=== PATIENT | female | born 1965 | race Asian ===

== ENCOUNTER 2017-02-04 14:54 | Outpatient (CLI) | payer MEDICAID | END 2017-02-04 14:55 | disposition home or self-care (01) | DX: Z12.31 Encounter for screening mammogram for malignant neoplasm of breast (principal) ==

== ENCOUNTER → 2017-04-19 | Outpatient (CLI) | payer MEDICAID ==
[2017-04-19 18:30] LABS: HEMOGLOBIN A1C 0.65 g/dL
[2017-04-19 18:37] LABS: ALBUMIN/GLOBULIN RATIO 1.3 (1.0-2.2); BILIRUBIN,TOTAL 0.5 mg/dL (0.2-1.0); BUN - BLOOD UREA NITROGEN 19 mg/dL (6-20); CALCIUM 9.3 mg/dL (8.5-10.3); CARBON DIOXIDE - CO2 25 mmol/L (21-32); CHLORIDE 104 mmol/L (101-111); CHOL/HDL RATIO 3.5 (<4.4); CHOLESTEROL 211 mg/dL; CREATININE 0.7 mg/dL (0.4-1.0); GFR - MDRD 88 (>89); GLUCOSE 112 mg/dL (70-100); HDL CHOLESTEROL 61 mg/dL; POTASSIUM 3.8 mmol/L (3.5-5.0); SODIUM 138 mmol/L (135-145); TOTAL PROTEIN 7.5 g/dL (6.7-8.2); TRIGLYCERIDES 141 mg/dL; VLDL CHOLESTEROL 28 mg/dL
== END ==
LOC: LAB.S 08:00
PROVIDERS: ATTEND Family Medicine
DX: E78.5 Hyperlipidemia, unspecified (principal); I10 Essential (primary) hypertension; E11.9 Type 2 diabetes mellitus without complications
CPT/HCPCS: 36415; 80053; 80061; 82043; 83036

== ENCOUNTER 2017-09-06 16:25 | Outpatient (CLI) | payer MEDICAID ==
--- NOTE | 2017-09-07 10:33 | XRAY Report ---
THREE-VIEW LEFT KNEE: 09/06/2017 CLINICAL INDICATION: Contusion. FINDINGS: AP, lateral, sunrise views of the left knee demonstrate moderate patellofemoral osteoarthr itis. There is no evidence of acute fracture or dislocation. No effusion is present. IMPRESSION: MODERATE OSTEOARTHRITIS OF THE PATELLOFEMORAL JOINT. JOB #: [id number] EXT JOB #:[id number]
== END 2017-09-06 16:26 | disposition home or self-care (01) ==
LOC: DI.S 16:25
PROVIDERS: ATTEND Nurse Practitioner Family
DX: M17.11 Unilateral primary osteoarthritis, right knee (principal)

== ENCOUNTER 2018-01-04 14:57 | Outpatient (CLI) | payer MEDICAID | END 2018-01-04 14:58 | disposition home or self-care (01) | LOC: DI.S 14:57 | PROVIDERS: ATTEND Nurse Practitioner Family | DX: Z53.9 Procedure and treatment not carried out, unspecified reason (principal) ==

== ENCOUNTER 2018-01-04 15:35 | Emergency (ER) | payer MEDICAID ==
--- NOTE | 2018-01-04 15:46 | ED Physician Documentation ---
PD HPI ABD PAIN - Stated complaint Stated Complaint: LWR L ABD PAIN - History obtained from History obtained from: Patient - History of Present Illness Timing - onset: How many days ago (5) Timing - duration: Days (5) Timing - details: Gradual onset, Still present (hit its maximal pain over about a day or so and has persisted since then. Tender to the touch LLQ and laterally. No fever, no vomiting, some soft stool but no diarrhea.) Quality: Aching, Sharp, Pain Location: LLQ Radiation: No: Chest, Left flank Improved by: Laying still, Position. No: Eating Worsened by: Moving, Palpation. No: Eating Associated symptoms: No: Fever, Nausea, Vomiting, Constipation, Melena, Dysuria , Hematuria, Loss of appetite, Vaginal bleeding, Vaginal dc Similar symptoms before: Has not had sx before Recently seen: Clinic (seen last Wednesday (4 days ago) in Clinic and empirically Rx for diverticulitis based on pain location. Late in day so clinic not able to get tests/imaging at that time. Pain persisted through weekend despite Bactrim and Flagyl bid. Patient back to clinic today and referred to ER for further testing.) Review of Systems Constitutional: denies: Fever, Chills Nose: denies: Rhinorrhea / runny nose, Congestion Throat: denies: Sore throat Respiratory: denies: Cough GI: reports: Abdominal Pain. denies: Nausea, Vomiting, Constipation, Diarrhea : denies: Dysuria, Frequency, Discharge, Vaginal bleeding Skin: denies: Rash, Lesions Musculoskeletal: denies: Back pain Neurologic: denies: Generalized weakness, Focal weakness, Numbness, Near syncope PD PAST MEDICAL HISTORY - Past Medical History Cardiovascular: Hypertension Respiratory: None Neuro: None Endocrine/Autoimmune: Type 2 diabetes GI: None - Present Medications Home Medications: Ambulatory Orders Medication Instructions Recorded Confirmed Diltiazem HCl [Diltiazem ER] 180 mg PO 01/04/18 Losartan [Cozaar] 100 mg PO DAILY 01/04/18 01/04/18 - Allergies Allergies/Adverse Reactions: Allergies Allergy/AdvReac Type Severity Reaction Status Date / Time No Known Drug Allergies Allergy Verified 01/04/18 15:52 - Living Situation Living Situation: reports: With spouse/s.o. Living Arrangement: reports: At home - Social History Does the pt smoke?: No Does the pt drink ETOH?: No Does the pt have substance abuse?: No - Family History Family history: reports: Non contributory PD ED PE NORMAL - Vitals Vital signs reviewed: Yes - General General: Alert and oriented X 3, No acute distress, Well developed/nourished - HEENT HEENT: Pharynx benign - Neck Neck: Supple, no meningeal sign, No adenopathy - Cardiac Cardiac: RRR, No murmur - Respiratory Respiratory: Clear bilaterally - Abdomen Abdomen: Normal bowel sounds, Soft, Non distended, Other (tender very focally left mid abdomen more laterally. No rash nor redness. No CVA tenderness. ) - Female Female : Deferred - Rectal Rectal: Deferred - Back Back: No CVA TTP - Derm Derm: Normal color, Warm and dry, No rash - Extremities Extremities: No deformity, Normal ROM s pain, No edema, No calf tenderness / cord - Neuro Neuro: Alert and oriented X 3, No motor deficit, Normal speech Results - Vitals Vitals: Vital Signs - 24 hr 01/04/18 15:43 Temperature 36.6 C Heart Rate 82 Respiratory 16 Rate Blood Pressure 131/68 H O2 Saturation 98 Oxygen O2 Source Room air - Labs Labs: Laboratory Tests 01/04/18 01/04/18 01/04/18 16:36 16:36 16:40 WBC 8.7 RBC 5.62 H Hgb 15.6 Hct 47.7 H MCV 84.9 MCH 27.8 MCHC 32.8 RDW 13.9 Plt Count 334 MPV 7.9 Neut # 5.7 Lymph # 2.2 [place] # 0.6 Eos # 0.1 Baso # 0.1 Absolute Nucleated RBC 0.00 Nucleated RBC % 0.0 Sodium 135 Potassium 3.9 Chloride 98 L Carbon Dioxide 24 Anion Gap 13.0 BUN 16 Creatinine 0.9 Estimated GFR (MDRD) 65 L Glucose 93 Calcium 9.5 Total Bilirubin 0.5 AST 45 H ALT 40 Alkaline Phosphatase 68 Total Protein 9.1 H Albumin 4.9 Globulin 4.2 Albumin/Globulin Ratio 1.2 Lipase 35 Urine Color YELLOW Urine Clarity CLEAR Urine pH 5.5 Ur Specific [place] >=1.030 H Urine Protein NEGATIVE Urine Glucose (UA) NEGATIVE Urine Ketones 40 H Urine Occult Blood NEGATIVE Urine Nitrite NEGATIVE Urine Bilirubin NEGATIVE Urine Urobilinogen 0.2 (NORMAL) Ur Leukocyte Esterase SMALL H Urine RBC None Seen Urine WBC 4-5 Ur Squamous Epith Cells MOD Squamous H Urine Bacteria Few Ur Microscopic Review INDICATED Urine Culture Comments NOT INDICATED - Rads (name of study) abd CT Radiology: Prelim report reviewed (Diverticula are noted but no signs of diverticulitis. There is a 2-3 cm rounded oval area of inflammation in the left lower quadrant consistent with epiploic appendagitis.), EMP read contemporaneously PD MEDICAL DECISION MAKING - ED course Complexity details: reviewed results, re-evaluated patient, considered differential, d/w patient, d/w family (her significant other) Departure - Departure Disposition: 01 Home, Self Care Clinical Impression: Epiploic appendagitis Abdominal pain Qualifiers: Abdominal location: left lower quadrant Qualified Code(s): R10.32 - Left lower quadrant pain Condition: Stable Record reviewed to determine appropriate education?: Yes Follow-Up: ALIYA SCHMITZ MD [Primary Care Provider] - Comments: You can stop antibiotics as there is no signs of infection. The epiploic appendage otitis creates and inflammation that typically lasts a couple of weeks. Anti-inflammatories can help it so I would suggest some Motrin ( ibuprofen) 2-3 tablets 2-3 times a day over the next 7-10 days. He can add Tylenol if needed for pains 2. Recheck if not better in the next week. He would be on usual to need surgical intervention for this but if the symptoms persisted more than 2 or 3 weeks then that could be a potential solution. Discharge Date/Time: 01/04/18 18:32
[2018-01-04 15:52] VITALS: BP 131/68
[2018-01-04 16:40] LABS: BASOPHILS # (AUTO) 0.1 10^3/uL (0.0-0.1); BASOPHILS % (AUTO) 0.9 %; EOSINOPHILS # (AUTO) 0.1 10^3/uL (0.0-0.7); EOSINOPHILS % (AUTO) 1.5 %; HGB - HEMOGLOBIN 15.6 g/dL (12.0-16.0); LYMPHOCYTES # (AUTO) 2.2 10^3/uL (1.5-3.5); LYMPHOCYTES % (AUTO) 25.1 %; MEAN CORPUSCULAR HEMOGLOBIN 27.8 pg (27.0-31.0); MEAN CORPUSCULAR HGB CONC 32.8 g/dL (32.0-36.0); MEAN CORPUSCULAR VOLUME 84.9 fL (81.0-99.0); MEAN PLATELET VOLUME 7.9 fL (7.9-10.8); MONOCYTES # (AUTO) 0.6 10^3/uL (0.0-1.0); MONOCYTES % (AUTO) 6.8 %; NEUTROPHILS # (AUTO) 5.7 10^3/uL (1.5-6.6); NEUTROPHILS % (AUTO) 65.7 %; PLT - PLATELET COUNT 334 10^3/uL (130-450); RED BLOOD COUNT 5.62 10^6/uL (4.20-5.40); RED CELL DISTRIBUTION WIDTH 13.9 % (12.0-15.0); WHITE BLOOD COUNT 8.7 x10^3/uL (4.8-10.8)
[2018-01-04 16:49] LABS: BILIRUBIN,URINE NEGATIVE (NEGATIVE); GLUCOSE, URINE (UA) NEGATIVE (NEGATIVE); KETONES,URINE (UA) 40 mg/dL (NEGATIVE); LEUKOCYTE ESTERASE, URINE SMALL (NEGATIVE); NITRITE,URINE NEGATIVE (NEGATIVE); OCCULT BLOOD,URINE NEGATIVE (NEGATIVE); PH,URINE 5.5 PH (5.0-7.5); PROTEIN,URINE NEGATIVE (NEGATIVE); UROBILINOGEN,URINE 0.2 (NORMAL) E.U./dL (NORMAL)
[2018-01-04 16:56] LABS: ALBUMIN 4.9 g/dL (3.2-5.5); ALBUMIN/GLOBULIN RATIO 1.2 (1.0-2.2); BILIRUBIN,TOTAL 0.5 mg/dL (0.2-1.0); CALCIUM 9.5 mg/dL (8.5-10.3); CREATININE 0.9 mg/dL (0.4-1.0); TOTAL PROTEIN 9.1 g/dL (6.7-8.2)
[2018-01-04 16:57] LABS: CLARITY,URINE CLEAR (CLEAR)
[2018-01-04 16:58] LABS: BACTERIA,URINE Few /HPF (None Seen); RBC,URINE None Seen /HPF (0-5); SQUAMOUS EPITHELIAL CELL,UR MOD Squamous (<= Few)
[2018-01-04] MEDS ORDERED: IOPAMIDOL-300 100 ML VIAL ONE (17:13)
[2018-01-04] MEDS ORDERED: IOPAMIDOL-300 100 ML VIAL IVP ONE (17:32)
--- NOTE | 2018-01-04 17:55 | CT Report ---
EXAM: CT ABDOMEN AND PELVIS EXAM DATE: 01/04/2018 05:32 PM. CLINICAL HISTORY: Left lower abdomen pain for 5 days. COMPARISONS: None. TECHNIQUE: Routine helical CT imaging was performed through the abdomen and pelvis. IV contrast: 100 ML ISOVUE 300. Enteric contrast: No. Reconstructions: Coronal and sagittal. In accordance with CT protocol optimization, one or more of the following dose reduction techniques w ere utilized for this exam: automated exposure control, adjustment of mA and/or KV based on patient s ize, or use of iterative reconstructive technique. FINDINGS: Lung Bases: Small hiatal hernia, otherwise unremarkable. Liver: Diffuse low-density. Gallbladder/Bile Ducts: Unremarkable. Spleen: Normal. Pancreas: Normal. Adrenal Glands: Normal. Kidneys: Normal. No masses or hydronephrosis. Peritoneal Cavity/Bowel: Mild widespread diverticulosis. Oval fat stranding lateral to the lower left colon without adjacent wall thickening or diverticular inflammation. No free fluid, free air or maria esther opathy. No masses. The appendix is well visualized and normal. Pelvic Organs: Fibroid uterus. The bladder is unremarkable. Vasculature: No aneurysms or other significant abnormality. Bones: Bilateral sacroiliitis noted. Minimal S-shaped scoliosis, with lower lumbar facet arthropathy. Other: None. IMPRESSION: 1. Epiploic appendagitis lateral to the lower left colon. 2. Mild widespread diverticulosis without signs of diverticulitis. 3. Small hiatal hernia. 4. Hepatic steatosis. [facility] Referring Provider Line: [phone] SITE ID: [id number]
--- NOTE | 2018-01-04 17:55 | CT Preliminary Report ---
Exam: CT ABDOMEN/PELVIS W/ IMPRESSION: 1. Epiploic appendagitis lateral to the lower left colon. 2. Mild widespread diverticulosis without signs of diverticulitis. 3. Small hiatal hernia. 4. Hepatic steatosis. [facility] SITE ID: [id number]
== END 2018-01-04 18:32 | disposition home or self-care (01) ==
LOC: ED 15:35
DX: K63.89 Other specified diseases of intestine (principal); R10.32 Left lower quadrant pain; I10 Essential (primary) hypertension; E11.9 Type 2 diabetes mellitus without complications
CPT/HCPCS: 36415; 74177; 80053; 81001; 83690; 85025; 99283; Q9967; 81003; 87086

== ENCOUNTER 2018-01-31 13:16 | Outpatient (CLI) | payer MEDICAID ==
[2018-01-31 18:49] LABS: HEMOGLOBIN A1C 0.74 g/dL; HEMOGLOBIN A1C % 6.1 % (4.6-6.2)
[2018-01-31 18:55] LABS: ALBUMIN 4.4 g/dL (3.2-5.5); ALBUMIN/GLOBULIN RATIO 1.3 (1.0-2.2); ALKALINE PHOSPHATASE 57 IU/L (42-121); ALT ALANINE AMINOTRANSFERASE 36 IU/L (10-60); AST ASPARTATE AMINOTRANSFERASE 25 IU/L (10-42); BILIRUBIN,TOTAL 0.6 mg/dL (0.2-1.0); BUN - BLOOD UREA NITROGEN 15 mg/dL (6-20); CALCIUM 9.2 mg/dL (8.5-10.3); CARBON DIOXIDE - CO2 26 mmol/L (21-32); CHLORIDE 101 mmol/L (101-111); CHOL/HDL RATIO 3.8 (<4.4); CHOLESTEROL 223 mg/dL; CREATININE 0.6 mg/dL (0.4-1.0); GFR - MDRD 104 (>89); GLUCOSE 96 mg/dL (70-100); HDL CHOLESTEROL 59 mg/dL; LDL CHOLESTEROL,CALCULATED 117 mg/dL; SODIUM 136 mmol/L (135-145); TOTAL PROTEIN 7.8 g/dL (6.7-8.2); VLDL CHOLESTEROL 47 mg/dL
== END 2018-01-31 13:17 ==
LOC: LAB.S 13:16
PROVIDERS: ATTEND Family Medicine
DX: E78.5 Hyperlipidemia, unspecified (principal); I10 Essential (primary) hypertension; E11.9 Type 2 diabetes mellitus without complications
CPT/HCPCS: 36415; 80053; 80061; 82043; 83036; 83721; 84443

== ENCOUNTER 2018-02-14 11:34 | Outpatient (CLI) | payer MEDICAID ==
--- NOTE | 2018-02-15 15:06 | Mammography Report ---
DIGITAL SCREENING MAMMOGRAM: 02/14/2018 CLINICAL INDICATION: A 52-year-old with history of late childbearing for screening. COMPARISON: 01/2017, 01/2016, 11/2014, 11/2013, 12/2012, 02/2011, 01/2010. TECHNIQUE: Routine CC and MLO projections were obtained of the breasts. FINDINGS: Parenchymal tissue within the breasts is predominantly fatty replaced. There are no dominant masses, suspicious microcalcifications, or secondary signs of malignancy. In comparison to the previous studies, there are no significant changes. IMPRESSION: NO MAMMOGRAPHIC EVIDENCE OF MALIGNANCY. NO SIGNIFICANT INTERVAL CHANGES. RECOMMENDATION: Screening mammography is recommended annually. BIRADS CATEGORY 1 - NEGATIVE. STANDARD QUALIFYING STATEMENTS: 1. This examination was reviewed with the aid of Computed-Aided Detection (CAD). 2. A negative or benign imaging report should not delay biopsy if clinically suspicious findings are present. Consider surgical consultation if warranted. More than 5% of cancers are not identified by imaging. 3. Dense breasts may obscure an underlying neoplasm. TD: 02/15/2018 15:05
== END 2018-02-14 11:35 | disposition home or self-care (01) ==
LOC: DI.S 11:34
PROVIDERS: ATTEND Family Medicine
DX: Z12.31 Encounter for screening mammogram for malignant neoplasm of breast (principal)
CPT/HCPCS: 77067

== ENCOUNTER 2018-08-08 11:09 | Outpatient (CLI) | payer MEDICAID ==
[2018-08-08 19:08] LABS: ALBUMIN 4.4 g/dL (3.2-5.5); ALBUMIN/GLOBULIN RATIO 1.3 (1.0-2.2); ALKALINE PHOSPHATASE 64 IU/L (42-121); ALT ALANINE AMINOTRANSFERASE 22 IU/L (10-60); AST ASPARTATE AMINOTRANSFERASE 20 IU/L (10-42); BILIRUBIN,TOTAL 0.7 mg/dL (0.2-1.0); BUN - BLOOD UREA NITROGEN 21 mg/dL (6-20); CALCIUM 9.2 mg/dL (8.5-10.3); CARBON DIOXIDE - CO2 24 mmol/L (21-32); CHLORIDE 103 mmol/L (101-111); CHOL/HDL RATIO 3.6 (<4.4); CHOLESTEROL 241 mg/dL; CREATININE 0.7 mg/dL (0.4-1.0); GFR - MDRD 87 (>89); GLUCOSE 115 mg/dL (70-100); HDL CHOLESTEROL 67 mg/dL; LDL CHOLESTEROL,CALCULATED 142 mg/dL; LDL/HDL RATIO 2.1 (<4.4); SODIUM 137 mmol/L (135-145); TOTAL PROTEIN 7.9 g/dL (6.7-8.2); VLDL CHOLESTEROL 32 mg/dL
[2018-08-08 19:23] LABS: HEMOGLOBIN A1C 0.7 g/dL; HEMOGLOBIN A1C % 6.2 % (4.6-6.2)
== END 2018-08-08 11:10 | disposition home or self-care (01) ==
LOC: LAB.S 11:09
PROVIDERS: ATTEND Nurse Practitioner Family
DX: R10.9 Unspecified abdominal pain (principal); E78.5 Hyperlipidemia, unspecified; I10 Essential (primary) hypertension; E11.9 Type 2 diabetes mellitus without complications
CPT/HCPCS: 80053; 80061; 82043; 83036; 83721

== ENCOUNTER 2019-03-14 08:00 | Outpatient (CLI) | payer MEDICAID ==
[2019-03-14 18:18] LABS: ALBUMIN 4.3 g/dL (3.2-5.5); ALBUMIN/GLOBULIN RATIO 1.2 (1.0-2.2); ALKALINE PHOSPHATASE 65 IU/L (42-121); ALT ALANINE AMINOTRANSFERASE 34 IU/L (10-60); AST ASPARTATE AMINOTRANSFERASE 28 IU/L (10-42); BILIRUBIN,TOTAL 0.4 mg/dL (0.2-1.0); BUN - BLOOD UREA NITROGEN 15 mg/dL (6-20); CALCIUM 9.4 mg/dL (8.5-10.3); CARBON DIOXIDE - CO2 25 mmol/L (21-32); CHLORIDE 103 mmol/L (101-111); CHOL/HDL RATIO 3.4 (<4.4); CHOLESTEROL 231 mg/dL; CREATININE 0.7 mg/dL (0.4-1.0); GFR - MDRD 87 (>89); GLUCOSE 119 mg/dL (70-100); HDL CHOLESTEROL 67 mg/dL; LDL CHOLESTEROL,CALCULATED 128 mg/dL; LDL/HDL RATIO 1.9 (<4.4); SODIUM 137 mmol/L (135-145); VLDL CHOLESTEROL 36 mg/dL
[2019-03-14 18:37] LABS: HB2 TOTAL 16.1 g/dL; HEMOGLOBIN A1C 0.8 g/dL; HEMOGLOBIN A1C % 6.7 % (4.6-6.2)
== END 2019-03-14 23:59 | disposition home or self-care (01) ==
LOC: LAB.F 08:00
PROVIDERS: ATTEND Physician Assistant Medical
DX: E78.5 Hyperlipidemia, unspecified (principal); E11.9 Type 2 diabetes mellitus without complications
CPT/HCPCS: 36415; 80053; 80061; 82043; 83036; 83721; 84443

== ENCOUNTER 2019-07-06 17:29 | Outpatient (CLI) | payer MEDICAID ==
--- NOTE | 2019-07-07 11:06 | Ultrasound Report ---
Reason: POSTMENOPAUSAL BLEEDING Procedure Date: 07/06/2019 Accession Number: [id number] / [id number] Procedure: US - Pelvic w/Transvaginal CPT Code: FULL RESULT: EXAM: PELVIC ULTRASOUND EXAM DATE: 07/06/2019 06:50 PM. CLINICAL HISTORY: POSTMENOPAUSAL BLEEDING. COMPARISON: PELV 02/25/2007 12:07 PM ABDOMEN/PELVIS W/ 01/04/2018 5:16 PM. TECHNIQUE: Realtime transabdominal pelvic scan performed to identify the uterus and adnexa and as an overview of other pelvic structures, followed by transvaginal scan to provide greater detail of the uterus and adnexa, with static image documentation. FINDINGS: Technically difficult examination. Uterus: 11.5 x 4.4 x 6.1 cm, volume 161 cc. Anteverted position. Mildly enlarged size and heterogeneous echotexture.. Masses: At least 3 discrete fibroids are seen. The largest is left subserosal mid to lower uterine segment 3 x 3.4 x 2.3 cm. Next largest is right fundal subserosal 2.5 x 2.4 x 2.9 cm. Endometrium: The endometrial echo is not well seen. mm. Normal. Cervix: Unremarkable. Right Ovary: 1.9 x 0.8 x 1.6 cm, volume 1.3 cc. Normal echotexture and blood flow. Left Ovary: 2.5 x 1.8 x 2.3 cm, volume 5.2 cc. Normal echotexture and blood flow. Possible 1.5 cm cyst Free Fluid: None. Other: None. IMPRESSION: Technically limited study. Mildly enlarged uterus with myomatous changes. Endometrial echo not well seen. No adnexal masses. [facility]
== END 2019-07-06 17:30 | disposition home or self-care (01) ==
LOC: DI 17:29
PROVIDERS: ATTEND Physician Assistant Medical
DX: D25.2 Subserosal leiomyoma of uterus (principal)
CPT/HCPCS: 76830; 76856

== ENCOUNTER 2019-09-18 11:09 | Outpatient (CLI) | payer MEDICAID ==
--- NOTE | 2019-09-18 14:42 | Mammography Report ---
Reason: ROUTINE MAMMO Procedure Date: 09/18/2019 Accession Number: [id number] / [id number] Procedure: MGS - Screening Mammo Dig Bilat CPT Code: Final Report FULL RESULT: EXAM: Screening Mammo Dig Bilat DATE: 09/18/2019 11:50 AM CLINICAL HISTORY: The patient is an asymptomatic 52-year-old female. Late childbearing age. Second degree family history of breast cancer. TECHNIQUE: (B) - Bilateral CC and MLO views were obtained. COMPARISON: 02/11/2016, 12/05/2014 12/12/2013 PARENCHYMAL PATTERN: (A) - The breasts demonstrate scattered fibroglandular densities bilaterally. FINDINGS: There are no suspicious masses, calcifications, or areas of distortion. IMPRESSION: Negative examination. BI-RADS category 1. RECOMMENDATION: (ANNUAL) - Recommend routine annual screening mammography. BI-RADS CATEGORY: (1) - Negative. STANDARD QUALIFYING STATEMENTS: 1. This examination was reviewed with the aid of Computer-Aided Detection (CAD). 2. A negative or benign imaging report should not preclude biopsy if clinically suspicious findings are present. 3. Dense breasts may obscure an underlying neoplasm.
[2019-09-18 18:18] LABS: HEMOGLOBIN A1C 0.7 g/dL; HEMOGLOBIN A1C % 6.4 % (4.6-6.2)
[2019-09-18 18:37] LABS: ALBUMIN 4.4 g/dL (3.2-5.5); ALBUMIN/GLOBULIN RATIO 1.3 (1.0-2.2); ALKALINE PHOSPHATASE 55 IU/L (42-121); ALT ALANINE AMINOTRANSFERASE 34 IU/L (10-60); AST ASPARTATE AMINOTRANSFERASE 23 IU/L (10-42); BILIRUBIN,TOTAL 0.5 mg/dL (0.2-1.0); BUN - BLOOD UREA NITROGEN 16 mg/dL (6-20); CALCIUM 9.4 mg/dL (8.5-10.3); CARBON DIOXIDE - CO2 27 mmol/L (21-32); CHLORIDE 103 mmol/L (101-111); CHOL/HDL RATIO 3.7 (<4.4); CHOLESTEROL 213 mg/dL; CREATININE 0.6 mg/dL (0.4-1.0); GFR - MDRD 103 (>89); GLUCOSE 114 mg/dL (70-100); HDL CHOLESTEROL 58 mg/dL; LDL CHOLESTEROL,CALCULATED 123 mg/dL; LDL/HDL RATIO 2.1 (<4.4); SODIUM 138 mmol/L (135-145); TOTAL PROTEIN 7.9 g/dL (6.7-8.2); VLDL CHOLESTEROL 32 mg/dL
== END 2019-09-18 11:10 | disposition home or self-care (01) ==
LOC: DI.S 11:09
DX: Z12.31 Encounter for screening mammogram for malignant neoplasm of breast (principal); Z80.3 Family history of malignant neoplasm of breast; I10 Essential (primary) hypertension; E78.5 Hyperlipidemia, unspecified; E11.9 Type 2 diabetes mellitus without complications
CPT/HCPCS: 36415; 77067; 80053; 80061; 83036; 83721

== ENCOUNTER 2020-07-22 10:20 | Outpatient (CLI) | payer MEDICAID ==
[2020-07-22 16:33] LABS: BASOPHILS % (AUTO) 0.5 %; EOSINOPHILS # (AUTO) 0.1 10^3/uL (0.0-0.7); EOSINOPHILS % (AUTO) 1.7 %; HGB - HEMOGLOBIN 14.7 g/dL (12.0-16.0); LYMPHOCYTES # (AUTO) 1.8 10^3/uL (1.5-3.5); LYMPHOCYTES % (AUTO) 29.9 %; MEAN CORPUSCULAR HEMOGLOBIN 28.5 pg (27.0-31.0); MEAN CORPUSCULAR HGB CONC 32.8 g/dL (32.0-36.0); MEAN CORPUSCULAR VOLUME 86.8 fL (81.0-99.0); MEAN PLATELET VOLUME 10.2 fL (7.9-10.8); MONOCYTES # (AUTO) 0.4 10^3/uL (0.0-1.0); MONOCYTES % (AUTO) 5.9 %; NEUTROPHILS # (AUTO) 3.6 10^3/uL (1.5-6.6); NEUTROPHILS % (AUTO) 61.3 %; PLT - PLATELET COUNT 282 10^3/uL (130-450); RED BLOOD COUNT 5.16 10^6/uL (4.20-5.40); RED CELL DISTRIBUTION WIDTH 13.5 % (12.0-15.0); WHITE BLOOD COUNT 5.9 x10^3/uL (4.8-10.8)
[2020-07-22 16:35] LABS: CREATININE,URINE 271.8 mg/dL; MICROALBUM/CREATININE RATIO,UR 5.5 ug/mg (<30.0); MICROALBUMIN,URINE 1.5 mg/dL (0-300.0)
[2020-07-22 17:27] LABS: ALBUMIN 4.4 g/dL (3.2-5.5); ALBUMIN/GLOBULIN RATIO 1.3 (1.0-2.2); ALKALINE PHOSPHATASE 58 IU/L (42-121); ALT ALANINE AMINOTRANSFERASE 37 IU/L (10-60); AST ASPARTATE AMINOTRANSFERASE 27 IU/L (10-42); BILIRUBIN,TOTAL 0.9 mg/dL (0.2-1.0); BUN - BLOOD UREA NITROGEN 17 mg/dL (6-20); CALCIUM 9.2 mg/dL (8.5-10.3); CARBON DIOXIDE - CO2 25 mmol/L (21-32); CHLORIDE 105 mmol/L (101-111); CHOL/HDL RATIO 4.4 (<4.4); CHOLESTEROL 237 mg/dL; CREATININE 0.8 mg/dL (0.4-1.0); GLUCOSE 127 mg/dL (70-100); HDL CHOLESTEROL 54 mg/dL; LDL CHOLESTEROL,CALCULATED 152 mg/dL; LDL/HDL RATIO 2.8 (<4.4); SODIUM 138 mmol/L (135-145); TOTAL PROTEIN 7.7 g/dL (6.7-8.2); VLDL CHOLESTEROL 31 mg/dL
[2020-07-22 22:26] LABS: HEMOGLOBIN A1c% 6.5 % (4.27-6.07)
[2020-07-23 13:43] LABS: HEPATITIS C ANTIBODY NON-REACTIVE (NON-REACTIVE)
== END 2020-07-22 10:21 | disposition home or self-care (01) ==
LOC: LAB.S 10:20
PROVIDERS: ATTEND Registered Nurse
DX: Z00.00 Encounter for general adult medical examination without abnormal findings (principal); Z12.11 Encounter for screening for malignant neoplasm of colon; I10 Essential (primary) hypertension; E11.9 Type 2 diabetes mellitus without complications; Z82.49 Family history of ischemic heart disease and other diseases of the circulatory system
CPT/HCPCS: 36415; 80053; 80061; 82043; 82274; 82570; 83036; 83721; 84443; 85025; 86803

== ENCOUNTER 2020-08-08 08:00 | Outpatient (CLI) | payer MEDICAID | END 2020-08-08 08:01 | disposition home or self-care (01) | LOC: LAB.R 08:00 | PROVIDERS: ATTEND Registered Nurse | DX: Z12.11 Encounter for screening for malignant neoplasm of colon (principal) | CPT/HCPCS: 82274 ==

== ENCOUNTER 2020-12-03 11:10 | Outpatient (CLI) | payer MEDICAID ==
[2020-12-03 15:21] LABS: CALCIUM 9.1 mg/dL (8.5-10.3); CREATININE 0.6 mg/dL (0.4-1.0)
[2020-12-03 20:06] LABS: HEMOGLOBIN A1c% 6.6 % (4.27-6.07)
[2020-12-04 12:18] LABS: HEPATITIS C ANTIBODY NON-REACTIVE (NON-REACTIVE)
== END 2020-12-03 11:11 | disposition home or self-care (01) ==
LOC: LAB.S 11:10
PROVIDERS: ATTEND Registered Nurse
DX: Z01.84 Encounter for antibody response examination (principal); E11.9 Type 2 diabetes mellitus without complications
CPT/HCPCS: 36415; 80048; 83036; 86803

== ENCOUNTER 2021-06-16 13:12 | Outpatient (CLI) | payer MEDICAID ==
--- NOTE | 2021-06-17 15:24 | Mammography Report ---
BILATERAL DIGITAL SCREENING MAMMOGRAM 3D/2D: 06/16/2021 CLINICAL: Family history of breast cancer. Comparison is made to exams dated: 09/18/2019 mammogram, 02/14/2018 mammogram, and 02/04/2017 mammogram - [facility]. There are scattered fibroglandular elements in both breasts. No significant masses, calcifications, or other findings are seen in either breast. There has been no significant interval change. IMPRESSION: NEGATIVE There is no mammographic evidence of malignancy. A 1 year screening mammogram is recommended. This exam was interpreted at Station ID: [id number]. NOTE: For mammograms, a report in lay terms will be sent to the patient. Approximately 15% of breast malignancies will not be visualized mammographically. In the management of a palpable breast mass, a negative mammogram must not discourage biopsy of a clinically suspicious lesion. Electronically Signed By: Lauri Belcher M.D. aty/penrad:06/16/2021 16:58:15 ACR BI-RADS Category 1: Negative 3341F PARENCHYMAL PATTERN: (A) - The breast(s) demonstrate(s) scattered fibroglandular densities. BI-RADS CATEGORY: (1) - 1 RECOMMENDATION: (ANNUAL) - Recommend routine annual screening mammography. [id number] 1 year screening LATERALITY: (B)
== END 2021-06-16 13:13 | disposition home or self-care (01) ==
LOC: DI.S 13:12
DX: Z12.31 Encounter for screening mammogram for malignant neoplasm of breast (principal); Z80.3 Family history of malignant neoplasm of breast

== ENCOUNTER 2021-09-16 09:20 | Outpatient (CLI) | payer MEDICAID ==
[2021-09-16 16:23] LABS: CREATININE 0.7 mg/dL (0.4-1.0); POTASSIUM 3.8 mmol/L (3.5-5.0)
[2021-09-16 21:16] LABS: ESTIMATED AVERAGE GLUCOSE 154 mg/dL (70-100)
== END 2021-09-16 09:21 | disposition home or self-care (01) ==
LOC: LAB.S 09:20
PROVIDERS: ATTEND Registered Nurse
DX: I10 Essential (primary) hypertension (principal); E11.9 Type 2 diabetes mellitus without complications
CPT/HCPCS: 36415; 80048; 83036

== ENCOUNTER 2021-12-05 10:34 | Outpatient (CLI) | payer MEDICAID ==
[2021-12-05 15:34] LABS: BASOPHILS % (AUTO) 0.6 %; EOSINOPHILS # (AUTO) 0.2 10^3/uL (0.0-0.7); EOSINOPHILS % (AUTO) 2.4 %; HGB - HEMOGLOBIN 14.8 g/dL (12.0-16.0); LYMPHOCYTES # (AUTO) 2.2 10^3/uL (1.5-3.5); LYMPHOCYTES % (AUTO) 34.4 %; MEAN CORPUSCULAR HEMOGLOBIN 27.9 pg (27.0-31.0); MEAN CORPUSCULAR HGB CONC 32.9 g/dL (32.0-36.0); MEAN CORPUSCULAR VOLUME 84.9 fL (81.0-99.0); MEAN PLATELET VOLUME 9.8 fL (7.9-10.8); MONOCYTES # (AUTO) 0.4 10^3/uL (0.0-1.0); MONOCYTES % (AUTO) 6.3 %; NEUTROPHILS # (AUTO) 3.6 10^3/uL (1.5-6.6); NEUTROPHILS % (AUTO) 55.8 %; PLT - PLATELET COUNT 309 10^3/uL (130-450); RED CELL DISTRIBUTION WIDTH 13.6 % (12.0-15.0); WHITE BLOOD COUNT 6.4 x10^3/uL (4.8-10.8)
[2021-12-05 16:02] LABS: ALBUMIN 4.1 g/dL (3.2-5.5); ALBUMIN/GLOBULIN RATIO 1.1 (1.0-2.2); ALKALINE PHOSPHATASE 53 IU/L (42-121); ALT ALANINE AMINOTRANSFERASE 35 IU/L (10-60); AST ASPARTATE AMINOTRANSFERASE 24 IU/L (10-42); BILIRUBIN,TOTAL 0.5 mg/dL (0.2-1.0); BUN - BLOOD UREA NITROGEN 14 mg/dL (6-20); CALCIUM 9.4 mg/dL (8.5-10.3); CARBON DIOXIDE - CO2 25 mmol/L (21-32); CHLORIDE 102 mmol/L (101-111); CHOLESTEROL 257 mg/dL; CREATININE 0.6 mg/dL (0.4-1.0); GFR - MDRD 103 (>89); GLUCOSE 143 mg/dL (70-100); HDL CHOLESTEROL 65 mg/dL; LDL CHOLESTEROL,CALCULATED 161 mg/dL; LDL/HDL RATIO 2.5 (<4.4); POTASSIUM 3.8 mmol/L (3.5-5.0); SODIUM 136 mmol/L (135-145); TOTAL PROTEIN 7.8 g/dL (6.7-8.2); TRIGLYCERIDES 153 mg/dL; VLDL CHOLESTEROL 31 mg/dL
[2021-12-05 16:14] LABS: CREATININE,URINE 197.6 mg/dL; MICROALBUM/CREATININE RATIO,UR 4.6 ug/mg (<30.0); MICROALBUMIN,URINE 0.9 mg/dL (0-300.0)
[2021-12-05 16:27] LABS: THYROID STIMULATING HORMONE 1.62 uIU/mL (0.34-5.60)
[2021-12-05 21:14] LABS: ESTIMATED AVERAGE GLUCOSE 154 mg/dL (70-100)
== END 2021-12-05 10:35 | disposition home or self-care (01) ==
LOC: LAB.S 10:34
PROVIDERS: ATTEND Registered Nurse
DX: E78.5 Hyperlipidemia, unspecified (principal); I10 Essential (primary) hypertension; E11.9 Type 2 diabetes mellitus without complications
CPT/HCPCS: 36415; 80050; 80061; 82043; 82570; 83036; 83721; 84153

== ENCOUNTER 2022-07-13 18:46 | Outpatient (CLI) | payer MEDICAID ==
--- NOTE | 2022-07-14 23:58 | Ultrasound Report ---
PROCEDURE: Pelvic w/Transvaginal INDICATIONS: UTERINE FIBROIDS TECHNIQUE: Real-time scanning was performed of the pelvic organs, with image documentation. Additional endovagi nal scanning was necessary due to incomplete visualization of the adnexal and endometrial structures by transabdominal scanning. COMPARISON: None. FINDINGS: Uterus: Uterus is anteverted and normal in size at 2.7 x 4.8 x 5.5 cm. The myometrium is heterogene ous. Multiple uterine fibroids are noted as described below: 1. 2.7 x 2.4 x 2.7 cm subserosal fibroid seen in uterine fundus previously measures 2.5 x 2.4 x 2.9 c m. 2. 2.7 x 2.8 x 3 cm submucosal fibroid is seen in mid myometrium previously measures 2.2 x 1.9 x 1.7 cm 3. 2.4 x 1.6 x 2 cm subserosal fibroid is seen in left lower uterine segment previously measures 3.4 x 3 x 2.3 cm in size. The endometrium measures 7 mm in combined thickness. No endometrial mass or fluid. Ovaries: The right ovary measures 1.5 x 1.5 x 1.6 cm, with a calculated ovarian volume of 1.8 cc. T he left ovary measures 2.7 x 1.6 x 2.3 cm, with a calculated ovarian volume of 5 cc. The ovaries hav e a normal sonographic appearance. Mildly complex cyst versus dominant follicle is seen in left ovary measures 1.9 x 1.1 x 1.5 cm in size. No internal vascularity is seen. Less than 12 follicles can be seen in each ovary. No adnexal masses are seen. Other: No pathologic free abdominal or pelvic fluid. IMPRESSION: 1. 3 uterine fibroids as described above. No endometrial mass or fluid. 2. Dominant follicle versus mildly complex cyst in left ovary. Sonographic follow-up in 4-6 weeks is recommended. Reviewed by: Jaylon Montano MD on 07/14/2022 11:57 PM PDT Approved by: Jaylon Montano MD on 07/14/2022 11:57 PM PDT Station ID: [id number]
== END 2022-07-13 18:47 | disposition home or self-care (01) ==
LOC: DI 18:46
PROVIDERS: ATTEND Registered Nurse
DX: D25.0 Submucous leiomyoma of uterus (principal); D25.2 Subserosal leiomyoma of uterus

== ENCOUNTER 2022-08-19 18:53 | Outpatient (CLI) | payer MEDICAID ==
--- NOTE | 2022-08-20 11:45 | Ultrasound Report ---
PROCEDURE: Pelvic w/Transvaginal INDICATIONS: OVARIAN CYST TECHNIQUE: Real-time scanning was performed of the pelvic organs, with image documentation. Additional endovagi nal scanning was necessary due to incomplete visualization of the adnexal and endometrial structures by transabdominal scanning. COMPARISON: Pelvic ultrasound 07/14/2022 FINDINGS: Uterus: Uterus is anteverted and normal in size at 5.1 x 4.9 x 6.0 cm. The myometrium is heterogene ous. The endometrium measures 6.6 mm in combined thickness. There is a fundal subserosal focus of h eterogeneous echogenicity in the uterus measuring 2.9 x 2.6 x 2.7 cm compared to 2.7 x 2.4 x 2.7 cm. A subdural focus in the mid uterus is identified measuring 3.1 x 2.9 x 3.2 cm compared to 2.7 x 2.68 x 3.0 cm. A lower uterine segment somewhat loculated focus is identified measuring 2.1 x 1.6 x 2.1 cm compared to 2.4 x 1.6 x 2.0 cm. Ovaries: The right ovary measures 1.5 x 1.0 x 1.5 cm, with a calculated ovarian volume of 1.2 cc. T he left ovary measures 2.6 x 1.6 x 2.5 cm, with a calculated ovarian volume of 5.5 cc. The ovaries h ave a normal sonographic appearance. Less than 12 follicles can be seen in each ovary. No adnexal m asses are seen. Other: No pathologic free abdominal or pelvic fluid. IMPRESSION: Multiple foci of heterogeneous echogenicity within the uterus appearing relatively stable compared to prior exam. No ovarian cysts are identified. Reviewed by: Cecilia Laurent MD on 08/20/2022 11:44 AM PDT Approved by: Cecilia Laurent MD on 08/20/2022 11:44 AM PDT Station ID: [id number]
== END 2022-08-19 18:54 | disposition home or self-care (01) ==
LOC: DI 18:53
PROVIDERS: ATTEND Registered Nurse
DX: D25.9 Leiomyoma of uterus, unspecified (principal)

== ENCOUNTER 2022-12-09 11:11 | Outpatient (CLI) | payer MEDICAID ==
[2022-12-09 14:21] LABS: BASOPHILS # (AUTO) 0.1 10^3/uL (0.0-0.1); BASOPHILS % (AUTO) 0.7 %; EOSINOPHILS # (AUTO) 0.1 10^3/uL (0.0-0.7); EOSINOPHILS % (AUTO) 1.8 %; HCT - HEMATOCRIT 45.9 % (37.0-47.0); HGB - HEMOGLOBIN 14.5 g/dL (12.0-16.0); LYMPHOCYTES # (AUTO) 2.3 10^3/uL (1.5-3.5); LYMPHOCYTES % (AUTO) 31.9 %; MEAN CORPUSCULAR HEMOGLOBIN 27.2 pg (27.0-31.0); MEAN CORPUSCULAR HGB CONC 31.6 g/dL (32.0-36.0); MEAN PLATELET VOLUME 9.9 fL (7.9-10.8); MONOCYTES # (AUTO) 0.4 10^3/uL (0.0-1.0); MONOCYTES % (AUTO) 5.6 %; NEUTROPHILS # (AUTO) 4.3 10^3/uL (1.5-6.6); NEUTROPHILS % (AUTO) 59.7 %; PLT - PLATELET COUNT 303 10^3/uL (130-450); RED BLOOD COUNT 5.34 10^6/uL (4.20-5.40); RED CELL DISTRIBUTION WIDTH 13.7 % (12.0-15.0); WHITE BLOOD COUNT 7.2 x10^3/uL (4.8-10.8)
[2022-12-09 15:00] LABS: THYROID STIMULATING HORMONE 1.19 uIU/mL (0.34-5.60)
[2022-12-09 15:15] LABS: ALBUMIN 4.2 g/dL (3.2-5.5); ALBUMIN/GLOBULIN RATIO 1.1 (1.0-2.2); ALKALINE PHOSPHATASE 53 IU/L (42-121); ALT ALANINE AMINOTRANSFERASE 32 IU/L (10-60); AST ASPARTATE AMINOTRANSFERASE 27 IU/L (10-42); BILIRUBIN,TOTAL 0.7 mg/dL (0.2-1.0); BUN - BLOOD UREA NITROGEN 15 mg/dL (6-20); CALCIUM 9.2 mg/dL (8.5-10.3); CARBON DIOXIDE - CO2 26 mmol/L (21-32); CHLORIDE 103 mmol/L (101-111); CHOL/HDL RATIO 3.7 (<4.4); CHOLESTEROL 254 mg/dL; CREATININE 0.7 mg/dL (0.4-1.0); GFR - MDRD 86 (>89); GLUCOSE 145 mg/dL (70-100); HDL CHOLESTEROL 69 mg/dL; LDL CHOLESTEROL,CALCULATED 162 mg/dL; LDL/HDL RATIO 2.3 (<4.4); POTASSIUM 3.4 mmol/L (3.5-5.0); SODIUM 139 mmol/L (135-145); TRIGLYCERIDES 114 mg/dL; VLDL CHOLESTEROL 23 mg/dL
[2022-12-09 20:12] LABS: ESTIMATED AVERAGE GLUCOSE 148 mg/dL (70-100); HEMOGLOBIN A1c% 6.8 % (4.27-6.07)
== END 2022-12-09 11:12 | disposition home or self-care (01) ==
LOC: LAB.S 11:11
PROVIDERS: ATTEND Registered Nurse
DX: I10 Essential (primary) hypertension (principal); E78.5 Hyperlipidemia, unspecified; E11.9 Type 2 diabetes mellitus without complications
CPT/HCPCS: 36415; 80050; 80061; 83036; 83721

== ENCOUNTER 2023-01-06 11:08 | Outpatient (CLI) | payer MEDICAID ==
[2023-01-06 15:11] LABS: FECAL OCCULT BLOOD (FIT) POSITIVE (NEGATIVE)
== END 2023-01-06 23:59 | disposition home or self-care (01) ==
LOC: LAB 11:08
PROVIDERS: ATTEND Registered Nurse
DX: Z12.11 Encounter for screening for malignant neoplasm of colon (principal)
CPT/HCPCS: 82274

== ENCOUNTER 2023-03-12 11:43 | Outpatient (CLI) | payer MEDICAID ==
[2023-03-12 15:32] LABS: CALCIUM 9.3 mg/dL (8.5-10.3); CREATININE 0.7 mg/dL (0.4-1.0); POTASSIUM 3.9 mmol/L (3.5-5.0)
[2023-03-12 15:56] LABS: CREATININE,URINE 141.4 mg/dL; MICROALBUM/CREATININE RATIO,UR 7.1 ug/mg (<30.0)
[2023-03-12 20:53] LABS: ESTIMATED AVERAGE GLUCOSE 143 mg/dL (70-100); HEMOGLOBIN A1c% 6.6 % (4.27-6.07)
== END 2023-03-12 11:44 | disposition home or self-care (01) ==
LOC: LAB.S 11:43
PROVIDERS: ATTEND Registered Nurse
DX: E11.9 Type 2 diabetes mellitus without complications (principal); Z79.899 Other long term (current) drug therapy
CPT/HCPCS: 36415; 80048; 82043; 82570; 83036

== ENCOUNTER 2023-07-08 11:06 | Outpatient (CLI) | payer MEDICAID ==
[2023-07-08 15:23] LABS: CALCIUM 9.2 mg/dL (8.5-10.3); CREATININE 0.6 mg/dL (0.6-1.3); POTASSIUM 3.9 mmol/L (3.5-4.5)
[2023-07-08 15:28] LABS: ESTIMATED AVERAGE GLUCOSE 134 mg/dL (70-100); HEMOGLOBIN A1c% 6.3 % (4.27-6.07)
== END 2023-07-08 11:07 | disposition home or self-care (01) ==
LOC: LAB.S 11:06
PROVIDERS: ATTEND Registered Nurse
DX: E11.9 Type 2 diabetes mellitus without complications (principal)
CPT/HCPCS: 36415; 80048; 83036

== ENCOUNTER 2023-07-24 09:42 | Outpatient (CLI) | payer MEDICAID ==
--- NOTE | 2023-07-25 13:05 | Ultrasound Report ---
PROCEDURE: Abdomen Complete INDICATIONS: DIVERTICULOSIS, ABD PAIN LLQ TECHNIQUE: Real-time scanning was performed of the abdominal and retroperitoneal organs, with image documentatio n. COMPARISON: CT 01/12/2018 FINDINGS: Liver: The liver is homogeneously hyperechoic. Well-defined focal area of hypoechogenicity in the li ema adjacent to the gallbladder. No increased vascularity. No discrete mass. Appropriate direction of flow in the main portal vein. Gallbladder: 1.6 cm echogenic rounded nonmobile focus in the gallbladder neck. There appears to be in creased internal vascularity. There is an avascular polypoid mass arising from the posterior wall benny suring 6 mm. The gallbladder wall is irregularly thickened measuring up to 4 mm. No pericholecystic f luid or sonographic Witt's sign. Biliary ducts: Intrahepatic bile ducts are non-dilated. Extrahepatic bile duct caliber measures 4 m m. Normal is 6-7 mm or less in diameter, or 10 mm or less post-cholecystectomy. Pancreas: Visualized portions of the pancreas are sonographically normal. Spleen: Spleen is normal in size and homogeneous in echotexture. Kidneys: Kidneys are normal in size and echotexture. Right kidney measures 9.4 cm long; left kidney measures 9.7 cm long. No hydronephrosis or nephrolithiasis. There is a parapelvic cyst versus dilat ed calyx lower pole left kidney. No solid masses. No complex renal cystic lesions which require follo w-up. Aorta: Visualized aorta is normal in caliber at less than 3 cm. Iliacs: Not seen due to overlying bowel gas. IVC: Intrahepatic inferior vena cava is patent. Miscellaneous: No free abdominal fluid. IMPRESSION: 1. Abnormal appearing gallbladder containing a possible vascular, immobile mass near the neck measuri ng 1.6 cm. Differential diagnosis includes stone with posterior artifact. 2. A 6 mm polypoid exophytic gallbladder wall lesion may be a polyp versus adherent sludge versus muc osal redundancy. 3. Moderate hepatic hyperechogenicity suggesting steatosis, consistent with liver appearance on remot e prior CT. 4. Left lower pole dilated calyx versus parapelvic cyst is stable compared to the CT from 2018. 5. Further evaluation of the gallbladder with contrast-enhanced MRCP is recommended. Reviewed by: Vinita Meyer MD on 07/25/2023 1:03 PM PDT Approved by: Vinita Meyer MD on 07/25/2023 1:03 PM PDT Station ID: [id number]
== END 2023-07-24 09:43 | disposition home or self-care (01) ==
LOC: DI 09:42
PROVIDERS: ATTEND Registered Nurse
DX: K82.4 Cholesterolosis of gallbladder (principal); R10.32 Left lower quadrant pain

== ENCOUNTER 2023-08-05 16:18 | Outpatient (CLI) | payer MEDICAID ==
[~2023-08-05 16:18] MED LIST: GADOTERATE MEGLUMINE 10 MMOL/20 ML VIAL ONE
[2023-08-05] MEDS ORDERED: GADOTERATE MEGLUMINE 10 MMOL/20 ML VIAL IVP ONE (17:58)
--- NOTE | 2023-08-06 12:24 | MRI Report ---
PROCEDURE: MRCP W/WO INDICATIONS: LESION OF THE GALLBLADDER CONTRAST: CLARISCAN 16ML TECHNIQUE: Coronal ultra fast SE through the abdomen, axial 2-D spoiled GE in- and [id number], and breath-hold T2 FSE with fat saturation through the biliary system and pancreas. Oblique coronal and axial thin- slice ultra fast SE, radial thick-slab ultra fast SE centered on the extrahepatic bile ducts. COMPARISON: Ultrasound 07/24/2023 FINDINGS: Image quality: Excellent. Liver: No solid mass. Clinically significant hepatic steatosis. Gallbladder and biliary tree: In the gallbladder fundus, there is a nonenhancing stones present. No i ntrahepatic or extrahepatic biliary dilation. A couple of sub-4 mm enhancing polyps are present withi n the wall; size is not warranted further follow-up.. Spleen: No splenomegaly. Pancreas: No pancreatic ductal dilation. Subcentimeter sidebranch IPMN. Adrenals: No adrenal nodule. Kidneys and ureters: No hydronephrosis. No renal cystic lesion which requires follow up. No solid mas s. Bowel and peritoneum: No bowel distension. No pathologic free fluid. Diverticulosis without evidence of diverticulitis. Lymph nodes: No central or retroperitoneal adenopathy. Vessels: No infrarenal aortic aneurysm. Bones: No aggressive osseous abnormality. Other: No significant ventral hernia. IMPRESSION: Nonenhancing stone present in the gallbladder fossa. The previously described vascular mass likely co rresponds to this stone, with posterior twinkle artifact. Moderate to severe hepatic steatosis. In the absence of alcohol use or other confounding factors, marleny vated LFTs may indicate nonalcoholic steatohepatitis (DAVIS). Reviewed by: Zackery Doyle on 08/06/2023 12:23 PM PDT Approved by: Zackery Doyle on 08/06/2023 12:23 PM PDT Station ID: [id number]
== END 2023-08-05 16:19 | disposition home or self-care (01) ==
LOC: DI 16:18
PROVIDERS: ATTEND Registered Nurse
DX: K80.20 Calculus of gallbladder without cholecystitis without obstruction (principal); K76.0 Fatty (change of) liver, not elsewhere classified
CPT/HCPCS: 74183; A9575

== ENCOUNTER 2024-01-04 11:44 | Outpatient (CLI) | payer MEDICAID ==
[2024-01-04 15:00] LABS: BASOPHILS % (AUTO) 0.7 %; EOSINOPHILS # (AUTO) 0.1 10^3/uL (0.0-0.7); EOSINOPHILS % (AUTO) 2.4 %; HCT - HEMATOCRIT 43.4 % (37.0-47.0); HGB - HEMOGLOBIN 14.2 g/dL (12.0-16.0); LYMPHOCYTES # (AUTO) 2.1 10^3/uL (1.5-3.5); MEAN CORPUSCULAR HEMOGLOBIN 28.2 pg (27.0-31.0); MEAN CORPUSCULAR HGB CONC 32.7 g/dL (32.0-36.0); MEAN CORPUSCULAR VOLUME 86.1 fL (81.0-99.0); MONOCYTES # (AUTO) 0.4 10^3/uL (0.0-1.0); MONOCYTES % (AUTO) 5.9 %; NEUTROPHILS # (AUTO) 3.2 10^3/uL (1.5-6.6); NEUTROPHILS % (AUTO) 54.3 %; PLT - PLATELET COUNT 289 10^3/uL (130-450); RED BLOOD COUNT 5.04 10^6/uL (4.20-5.40); RED CELL DISTRIBUTION WIDTH 13.1 % (12.0-15.0); WHITE BLOOD COUNT 5.9 x10^3/uL (4.8-10.8)
[2024-01-04 16:21] LABS: ALBUMIN 4.4 g/dL (3.2-5.5); ALBUMIN/GLOBULIN RATIO 1.6 (1.0-2.2); ALKALINE PHOSPHATASE 51 IU/L (42-121); ALT ALANINE AMINOTRANSFERASE 15 IU/L (10-60); AST ASPARTATE AMINOTRANSFERASE 14 IU/L (10-42); BILIRUBIN,TOTAL 0.5 mg/dL (0.2-1.0); BUN - BLOOD UREA NITROGEN 14 mg/dL (6-20); CALCIUM 9.4 mg/dL (8.5-10.3); CARBON DIOXIDE - CO2 28 mmol/L (21-32); CHLORIDE 103 mmol/L (101-111); CHOL/HDL RATIO 3.7 (<4.4); CHOLESTEROL 223 mg/dL; CREATININE 0.7 mg/dL (0.6-1.3); GFR - MDRD 85 (>89); GLUCOSE 123 mg/dL (74-104); HDL CHOLESTEROL 61 mg/dL; LDL CHOLESTEROL,CALCULATED 130 mg/dL; LDL/HDL RATIO 2.1 (<4.4); POTASSIUM 3.7 mmol/L (3.5-4.5); SODIUM 138 mmol/L (135-145); THYROID STIMULATING HORMONE 1.71 uIU/mL (0.34-5.60); TOTAL PROTEIN 7.2 g/dL (6.4-8.9); TRIGLYCERIDES 159 mg/dL (48-352); VLDL CHOLESTEROL 32 mg/dL
== END 2024-01-04 11:45 | disposition home or self-care (01) ==
LOC: LAB.S 11:44
PROVIDERS: ATTEND Registered Nurse
DX: Z79.899 Other long term (current) drug therapy (principal); E78.5 Hyperlipidemia, unspecified; Z13.29 Encounter for screening for other suspected endocrine disorder
CPT/HCPCS: 36415; 80050; 80061; 83721

== ENCOUNTER 2024-01-10 13:55 | Outpatient (CLI) | payer MEDICAID ==
[2024-01-10 20:25] LABS: ESTIMATED AVERAGE GLUCOSE 134 mg/dL (70-100); HEMOGLOBIN A1c% 6.3 % (4.27-6.07)
--- NOTE | 2024-01-11 10:09 | Mammography Report ---
BILATERAL DIGITAL SCREENING MAMMOGRAM 3D/2D: 01/10/2024 Comparison is made to exams dated: 06/16/2021 mammogram, 09/18/2019 mammogram, 02/14/2018 mammogram, an d 02/04/2017 mammogram - [facility]. There are scattered areas of fibroglandular density in both breasts (category b / 25%-50% glandular t issue). No significant masses, calcifications, or other findings are seen in either breast. There has been no significant interval change. IMPRESSION: NEGATIVE There is no mammographic evidence of malignancy. A 1 year screening mammogram is recommended. Based on the Tyrer Cuzick model (a risk assessment model) the patient's lifetime risk is 7.7% and her 10 year risk is 3.1%. According to the ACR, ACS, and NCCN guidelines, an annual breast MRI exam karen g with mammogram is recommended if the patient's lifetime risk is 20% or greater. This exam was interpreted at Station ID: [id number]. NOTE: For mammograms, a report in lay terms will be sent to the patient. Approximately 15% of breast malignancies will not be visualized mammographically. In the management of a palpable breast mass, a negative mammogram must not discourage biopsy of a clinically suspicious lesion. Electronically Signed By: Carlos wasserman/herlinda:01/10/2024 16:11:32 letter sent: No_Letter ACR BI-RADS Category 1: Negative 3341F PARENCHYMAL PATTERN: (A) - The breast(s) demonstrate(s) scattered fibroglandular densities. BI-RADS CATEGORY: (1) - 1 RECOMMENDATION: (ANNUAL) - Recommend routine annual screening mammography. [id number] 1 year screening LATERALITY: (B)
== END 2024-01-10 13:56 | disposition home or self-care (01) ==
LOC: DI.S 13:55
DX: Z12.31 Encounter for screening mammogram for malignant neoplasm of breast (principal); R92.323 Mammographic fibroglandular density, bilateral breasts; E11.9 Type 2 diabetes mellitus without complications
CPT/HCPCS: 36415; 83036

== ENCOUNTER 2024-07-14 07:04 | Outpatient (CLI) | payer MEDICAID ==
[2024-07-14 15:34] LABS: MICROALBUM/CREATININE RATIO,UR 6.3 ug/mg (<30.0); MICROALBUMIN,URINE 1.3 mg/dL
[2024-07-14 15:55] LABS: CALCIUM 9.3 mg/dL (8.5-10.3); CREATININE 0.7 mg/dL (0.6-1.3); POTASSIUM 3.6 mmol/L (3.5-4.5)
[2024-07-14 20:47] LABS: ESTIMATED AVERAGE GLUCOSE 128 mg/dL (70-100); HEMOGLOBIN A1c% 6.1 % (4.27-6.07)
== END 2024-07-14 07:05 | disposition home or self-care (01) ==
LOC: LAB.S 07:04
PROVIDERS: ATTEND Registered Nurse
DX: E11.9 Type 2 diabetes mellitus without complications (principal)
CPT/HCPCS: 36415; 80048; 82043; 82570; 83036